=== PATIENT | male | born 2000 | race Caucasian/White ===

== ENCOUNTER 2025-06-03 22:27 | Emergency (ER) | payer OTHER ==
[~2025-06-03] VITALS: Ht 188 cm; Wt 93.9 kg
[2025-06-03 22:44] VITALS: TEMP 98.5
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
[2025-06-04 01:06] VITALS: BP 101/57; PULSE 86; RESP 18; O2SAT 97
--- NOTE | 2025-06-04 01:17 | RADIOLOGY REPORT ---
CLINICAL INDICATION: right hand trauma TECHNIQUE: DI HAND, COMPLETE (3VW MIN) Comparison: None FINDINGS/IMPRESSION: : There is no evidence of acute fracture or dislocation. Soft tissues are unremarkable.
== END 2025-06-04 01:08 | disposition home or self-care (01) ==
LOC: ER 22:28
DX: S60.221A Contusion of right hand, initial encounter (principal); F41.9 Anxiety disorder, unspecified; F43.10 Post-traumatic stress disorder, unspecified; W22.03XA Walked into furniture, initial encounter; Y93.89 Activity, other specified; Y92.89 Other specified places as the place of occurrence of the external cause; Y99.8 Other external cause status
CPT/HCPCS: 73130; 99283